=== PATIENT | male | born 1960 | race Caucasian/White ===

== ENCOUNTER 2016-09-21 18:59 | Inpatient (IN) | payer BC, OTHER ==
[~2016-09-21] VITALS: Ht 188 cm; Wt 81.6 kg
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
[2016-09-21 20:10] VITALS: BP 116/78
[2016-09-21 21:09] LABS: *AMPHETAMINE, URINE NEGATIVE (NEGATIVE); *BARBITURATE, URINE NEGATIVE (NEGATIVE); *CANNABINOID, URINE NEGATIVE (NEGATIVE); *COCCAINE, URINE NEGATIVE (NEGATIVE); *OPIATE, URINE NEGATIVE (NEGATIVE); *PHENCYCLIDINE SCREEN,URINE NEGATIVE (NEGATIVE)
[2016-09-21] MEDS ORDERED: MAGNESIUM HYDROXIDE 30 ML LIQUID UDC PO PRN (22:15)
[2016-09-21] MEDS ORDERED: MAG HYDROX/AL HYDROX/SIMETH 30 ML LIQUID UDC PO PRN (22:15)
[2016-09-21] MEDS ORDERED: LORAZEPAM 1 MG TABLET PO PRN ×2 (22:15)
[2016-09-21] MEDS ORDERED: ACETAMINOPHEN 325 MG TABLET PO PRN (22:15)
[2016-09-21] MEDS ORDERED: IBUPROFEN 400 MG TABLET PO PRN (22:15)
[2016-09-21] MEDS ORDERED: LORAZEPAM 2 MG/1 ML VIAL IM PRN (22:15)
[2016-09-21] MEDS ORDERED: ONDANSETRON ODT 4 MG TAB.RAPDIS SL PRN (22:15)
[2016-09-21] MEDS ORDERED: MIRALAX 17 GM POWD.PACK PO PRN (22:15)
[2016-09-21] MEDS ORDERED: diphenhydrAMINE 50 MG CAPSULE PO PRN (22:15)
[2016-09-21] MEDS ORDERED: HYDROXYZINE PAMOATE 25 MG CAPSULE PO PRN (22:15)
[2016-09-21] MEDS ORDERED: DICYCLOMINE HCL 20 MG TABLET PO PRN (22:15)
[2016-09-21] MEDS ORDERED: PROMETHAZINE HCL 25 MG/1 ML VIAL IM PRN (22:15)
[2016-09-21] MEDS ORDERED: LOPERAMIDE HCL 2 MG CAPSULE PO PRN ×2 (22:15)
[2016-09-21] MEDS ORDERED: CLONIDINE HCL 0.1 MG TABLET PO PRN (22:15)
--- NOTE | 2016-09-22 | NUR ---
Pt refused to be woken up for 0000 VS CIWA assessment deferred d/t pt sleeping - to asses while pt is awake as ordered. No s/s of distress noted, respirations even and unlabored. Safety measures in place, call light within reach, side rails up x2, bed locked and in low position. Will continue to monitor.
[2016-09-22] MEDS ORDERED: BUPR150T10 PO (00:03)
[2016-09-22] MEDS ORDERED: THIA100T74 PO (00:03)
[2016-09-22] MEDS ORDERED: FOLI1TAB16 PO (00:03)
[2016-09-22] MEDS ORDERED: IBUP-1482 PO (00:03)
[2016-09-22] MEDS ORDERED: LEVO100T10 PO (00:03)
[2016-09-22] MEDS ORDERED: GABA-534 PO (00:08)
--- NOTE | 2016-09-22 04:00 | NUR ---
Pt refused to be woken up for 0400 VS CIWA assessment deferred d/t pt sleeping - to asses while pt is awake as ordered. No s/s of distress noted, respirations even and unlabored. Safety measures in place, call light within reach, side rails up x2, bed locked and in low position. Will continue to monitor.
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
[2016-09-22] MEDS ORDERED: ONDANSETRON 4 MG/2 ML VIAL IM PRN (07:30)
--- NOTE | 2016-09-22 07:30 | NUR ---
START OF SHIFT Received report from machinist 2nd shift nurse. 56 year old male patient admitted on 09/21/16 for ETOH withdrawals. Per pt report, he relapsed for one day only. Pt is not on a taper, and per MD will continue on PRN medications. No PRN medications administered at night. Pt denies hx of seizures. Reports hx of manic depression, anxiety bipolar, OCD and PTSD. Skin is warm, dry and intact. Most recent CIWA is 7. Pt is unsteady and has passive SI, denies active plan. Pt is on a 1:1 sitter for safety. V/S remain WNL. All needs met, safety precautions in place, will continue to monitor.
[2016-09-22 08:48] VITALS: BP 98/65
[2016-09-22] MEDS ORDERED: FOLIC ACID 1 MG TABLET PO SCH (09:00)
[2016-09-22] MEDS ORDERED: TUBERCULIN,PURIF.PROT.DERIV. 5 TU/0.1 ML TEST ID ONE (09:00)
[2016-09-22] MEDS ORDERED: THIAMINE HCL 100 MG TABLET PO SCH (09:00)
[2016-09-22] MEDS ORDERED: MULTIVITAMINS,THERAPEUTIC TABLET PO SCH (09:00)
[2016-09-22] MEDS ORDERED: THIAMINE HCL 200 MG/2 ML VIAL IM ONE (09:00)
--- NOTE | 2016-09-22 09:01 | NUR ---
PRN ATIVAN/ZOFRAN Prn Ativan administered for CIWA 12, pt reports increased anxiety, agitation, sweats and nausea. PRN Ativan 1mg administered as ordered. PRN Zofran administered for nausea.
[2016-09-22 09:25] LABS: ALBUMIN 3.8 g/dL (3.4-5.0); BILIRUBIN,TOTAL 0.3 mg/dL (0.2-1.0); CALCIUM 8.7 mg/dL (8.5-10.1); MAGNESIUM 1.6 mg/dL (1.8-2.4); TOTAL PROTEIN, SERUM 7.6 g/dL (6.4-8.2)
[2016-09-22 09:35] LABS: BASOPHILS % (AUTO) 0.7 % (0.0-2.0); EOSINOPHILS # (AUTO) 0.1 K/uL (0.0-0.7); EOSINOPHILS % (AUTO) 1.8 % (0.0-7.0); HEMATOCRIT 39.4 % (40.0-50.0); HEMOGLOBIN 13.3 g/dL (14.0-18.0); LYMPHOCYTES # (AUTO) 1.9 K/uL (0.8-4.8); LYMPHOCYTES % (AUTO) 27.3 % (20.5-51.5); MEAN CORPUSCULAR HEMOGLOBIN 29.4 uug (27.0-31.0); MEAN CORPUSCULAR HGB CONC 34 g/dL (32.0-37.0); MEAN CORPUSCULAR VOLUME 87.3 fL (82.0-92.0); MONOCYTES # (AUTO) 0.4 K/uL (0.1-1.30); MONOCYTES % (AUTO) 5.7 % (0.0-11.0); NEUTROPHILS # (AUTO) 4.4 K/uL (1.8-8.9); NEUTROPHILS % (AUTO) 64.5 % (38.5-71.5); PLATELET COUNT (AUTO) 364 K/uL (150-450); RED BLOOD CELL COUNT(AUTO) 4.52 MIL/uL (4.70-6.10); RED CELL DISTRIBUTION WIDTH 14.5 % (11.5-14.5); WHITE BLOOD COUNT (AUTO) 6.8 K/uL (4.0-11.2)
[2016-09-22 09:58] LABS: HIV-1 p24 ANTIGEN NON REACTIVE (NONREACTIVE); HIV-1/2 ANTIBODY NON REACTIVE (NONREACTIVE)
--- NOTE | 2016-09-22 10:05 | NUR ---
REASSESSMENT Pt CIWA remains 12, Ativan was ineffective. Pt encouraged to rest and do deep breathing exercise and verbalize feelings, pt continues on a 1:1, will continue monitoring.
[2016-09-22 10:10] LABS: THYROID STIMULATING HORMONE 1.675 mIU/mL (0.358-3.740)
--- NOTE | 2016-09-22 11:27 | NUR ---
MD COMMUNICATION Notified psychiatrist Dr. Bolaños pt status. Pt is experiencing active visual hallucinations states "my skin is crawling," pt is getting agitated and is irritable. Seroquel 100mg one time ordered per Dr. Bolaños, telephone order, readback for verification complete.
[2016-09-22] MEDS ORDERED: QUETIAPINE FUMARATE 100 MG TABLET PO ONE (11:30)
[2016-09-22] MEDS: GABAPENTIN 300 MG CAPSULE PO SCH ×3 (11:34→21:07)
--- NOTE | 2016-09-22 13:38 | NUR ---
PATIENT ROUNDING Patient is sleeping at this time, respiration rate is 16, even and unlabored. TELEPHONE OPERATOR CHIEF at bedside. Will continue to monitor.
--- NOTE | 2016-09-22 15:15 | NUR ---
1500 REFUSAL OF GABAPENTIN Pt is refusing ordered dose of Gabapentin, pt is stable at this time.
[2016-09-22] MEDS ORDERED: QUETIAPINE FUMARATE 25 MG TABLET PO PRN (16:15)
--- NOTE | 2016-09-22 17:25 | NUR ---
VITAL REFUSAL Pt is sleeping at this time and does not want vitals to be taken. RR 16 even and unlabored. GROUP RESERVATIONS COORDINATOR is at bedside.
--- NOTE | 2016-09-22 18:53 | NUR ---
END OF SHIFT 56 year old male patient admitted on 09/21/16 for ETOH withdrawals. pt is not on a taper and is medically cleared for discharge, pending urine collection. PRN Zofran X1 and Seroquel X1 administered and effective. Reports hx of manic depression, anxiety bipolar, OCD and PTSD. Skin is warm, dry and intact. Most recent CIWA is 6. Pt is steady and denies SI at this time. Pt is on a 1:1 sitter for safety and history of suicidal ideation. Pt. reports visual hallucinations and states he sees "spiders," visual hallucination minimized after receiving Seroquel, pt. is sleeping at this time. V/S remain WNL. Patient refused scheduled 1500 gabapentin and 1600 vital signs. Chest Xray done and result was negative. All needs met, safety precautions in place. retail shift supervisor nurse will continue to monitor.
[2016-09-22 20:00] VITALS: BP 107/60
--- NOTE | 2016-09-22 20:00 | NUR ---
Start of Shift Pt is a 56 year old male admitted on 09/21/2016 for ETOH dependence. Pt relapsed for one day one, not on a taper. Pt is on 1:1 for safety and history of suicidal ideation. Pt is allergic to pollen, fall/seizure precautions -denies hx of seizures, regular diet and full code. PMH: manic depression, anxiety, bipolar, OCD, PTSD. Upon assessment, pt reports fatigue, skin warm, moist/intact. Respirations even/unlabored, denies SOB/chest pain. Denies SI - denies active plan, denies hallucinations. BP 107/60, pulse 75, Spo2 96%, respirations 16, temp 97.7. Safety measures in place, call light within reach, side rails up x2, bed locked and in low position. Will continue to monitor
[2016-09-22 22:07] LABS: *AMPHETAMINE, URINE NEGATIVE (NEGATIVE); *BARBITURATE, URINE NEGATIVE (NEGATIVE); *CANNABINOID, URINE NEGATIVE (NEGATIVE); *COCCAINE, URINE NEGATIVE (NEGATIVE); *OPIATE, URINE NEGATIVE (NEGATIVE); *PHENCYCLIDINE SCREEN,URINE NEGATIVE (NEGATIVE)
[2016-09-23] VITALS: BP 98/62
--- NOTE | 2016-09-23 | NUR ---
Vital Signs BP 98/62, pulse 79, respirations 16, Spo2 99%, temp 98.1 CIWA deferred d/t pt sleeping, to asses while pt is awake as ordered. Pt is sleeping, no s/s of distress noted, respirations even and unlabored. Safety measures in place, sitter at bedside, call light within reach, side rails up x2, bed locked and in low position. Will continue to monitor.
--- NOTE | 2016-09-23 04:00 | NUR ---
Pt refused to be woken up for 0400 VS CIWA deferred d/t pt sleeping, to asses while pt is awake as ordered. Pt is sleeping, no s/s of distress noted, respirations even and unlabored. Safety measures in place, sitter at bedside, call light within reach, side rails up x2, bed locked and in low position. Will continue to monitor.
[2016-09-23] MEDS ORDERED: LEVOTHYROXINE SODIUM 100 MCG TABLET PO SCH (07:00)
--- NOTE | 2016-09-23 07:00 | NUR ---
End of Shift Pt is a 56 year old male admitted on 09/21/2016 for ETOH dependence. Pt relapsed for one day one, not on a taper. Pt is on 1:1 for safety and history of sucicidal ideation. Pt is allergic to pollen, fall/seizure precautions -denies hx of seizures, regular diet and full code. PMH: manic depression, anxiety, bipolar, OCD, PTSD. During shift, pt remained free of hallucinations, denies SI - denies active plan. Skin warm, moist/intact. Scheduled Gabapentin 300mg administered. No PRN medications administered. VS stable, CIWA 6. Pt slept for 9 hours, intake of 1242 ml PO and voids x3. VS stable, Safety measures in place, call light within reach, side rails up x2, bed locked and in low position. Endorsed to day shift nurse.
--- NOTE | 2016-09-23 07:29 | NUR ---
START OF SHIFT NOTE: Received report from machinist 2nd shift nurse. Pt is a 56 year old male admitted on 09/21/2016 for ETOH dependence. To be discharged this AM. Pt is alert and oriented X 4. Color good, skin warm and dry. Respirations even and unlabored. Safety precautions observed. Call light within reach.
--- NOTE | 2016-09-23 07:30 | NUR ---
Discharge papers and medication bag signed. VSS
[2016-09-23 08:17] VITALS: BP 140/90
--- NOTE | 2016-09-23 08:23 | NUR ---
Pt discharged in stable condition with all valuables, belongings and medications. Denies SI/HI. Pt to [facility] via [facility] [facility] private car.
[2016-09-23 12:08] LABS: HCV AB <0.1 s/co ratio (0.0-0.9); HEPATITIS B CORE AB, IgM Negative (Negative); HEPATITIS B SURFACE AG Negative (Negative)
== END 2016-09-23 08:23 | disposition other institution (70) | DRG 896 ==
LOC: SRC 20:18
PROVIDERS: ADMIT Internal Medicine; ATTEND Internal Medicine
PROC: HZ2ZZZZ Detoxification Services for Substance Abuse Treatment (ICD-10-PCS; principal; 2016-09-21)
DX: F10.232 Alcohol dependence with withdrawal with perceptual disturbance (principal); G92 Toxic encephalopathy; Y90.9 Presence of alcohol in blood, level not specified; F10.221 Alcohol dependence with intoxication delirium; F43.12 Post-traumatic stress disorder, chronic; Y36.90XS War operations, unspecified, sequela; F42.9 Obsessive-compulsive disorder, unspecified; F31.9 Bipolar disorder, unspecified; E88.89 Other specified metabolic disorders
CPT/HCPCS: 36415; 71010; 80307; 83690; 83735; 84443; 85025; 86580; 86592; 86705; 86803; 87340; 87806; A4663; G6040-TC; J3411; Q0162